=== PATIENT | male | born 1955 | race Asian ===

== ENCOUNTER → 2018-01-22 14:19 | Outpatient (CLI) | payer OTHER, MEDICAID, SELFPAY ==
--- NOTE | 2018-01-22 | DI.RAD.S_ITS ---
PROCEDURE: XR CHEST 2V INDICATIONS: BRONCHITIS TECHNIQUE: 2 views of the chest were acquired. COMPARISON: [facility], YAMILA YI XRAY (1 VIEW ABDOMEN), 05/30/2012, 13:58. FINDINGS: Surgical changes and devices: None. Lungs and pleura: No pleural effusions or pneumothorax. Lungs are abnormal with slight interstitial prominence. Mediastinum: Mediastinal contours are normal. Heart size is mildly enlarged. Bones and chest wall: No suspicious bony abnormalities. Soft tissues appear unremarkable. IMPRESSION: Mild cardiomegaly, slight interstitial prominence. Chronic CHF, mild in severity, can produce this appearance. Pneumonia is not found. Dictated by: Anish Garcia M.D. on 01/22/2018 at 15:14 Approved by: Anish Garcia M.D. on 01/22/2018 at 15:15
== END ==
PROVIDERS: PCP Internal Medicine; Visit Provider Internal Medicine
DX: I51.7 Cardiomegaly (principal); I50.9 Heart failure, unspecified
CPT/HCPCS: 71046

== ENCOUNTER 2019-05-08 13:50 | Day surgery (SDC) | payer OTHER, MEDICAID, SELFPAY ==
--- NOTE | 2019-05-08 | PATH_ITS ---
[facility] Accession Number: [id number] . 01 Material submitted: . PART A: colon - CECAL POLYP X2 PART B: colon - TRANSVERSE COLON POLYPS X5 PART C: rectum - RECTAL POLYPS X4 PART D: colon - DESCENDING COLON POLYPS X5 . 02 Diagnosis: A. Cecum, Polyps x2, Biopsies: Tubular adenoam, one fragment. . B. Transverse Colon, Polyps x5, Biopsies: Multiple fragments of tubulovillous adenoma and tubular adenoma. No evidence of malignancy or high-grade dysplasia. . C. Rectum, Polyps x4, Biopsies: Tubular adenoma in four of five fragments. Hyperplastic polyp in one fragment. . D. Descending Colon, Polyps x5, Biopsies: Tubular adenoma in five of six fragments. [facility] 05/10/2019 1126 Local . 02 Electronically signed: . Niharika Vidal MD, Pathologist NPI- [id number] . 01 Gross description: . Part A: CECAL POLYP X2: Received in formalin is 1 fragment(s) of guajardo, soft tissue measuring 0.5 x 0.4 x 0.4 cm submitted entirely in 1 cassette(s) Part B: TRANSVERSE COLON POLYPS X5: Received in formalin are multiple fragment(s) of guajardo, soft tissue measuring 0.1 x 0.1 x 0.1 cm to 0.7 x 0.6 x 0.6 cm submitted entirely in 2 cassette(s) Part C: RECTAL POLYPS X4: Received in formalin are multiple fragment(s) of guajardo, soft tissue measuring 0.2 x 0.2 x 0.2 cm to 0.6 x 0.6 x 0.5 cm submitted entirely in 1 cassette(s) Part D: DESCENDING COLON POLYPS X5: Received in formalin are multiple fragment(s) of guajardo, soft tissue measuring 0.5 x 0.5 x 0.4 cm to 0.6 x 0.5 x 0.5 cm submitted entirely in 2 cassette(s) /[facility] 05/09/2019 1828 Local . 02 Pathologist provided ICD-10: D12.0, D12.3, D12.4, D12.8 . 02 CPT . 315895, 428784, 358539, 653378 Performed at: 01 [facility] [address] [address], [place], [place] [id number] MD Anthony Rios MD Phone: [phone] Performed at: 02 [facility] [address] [place], [place] [id number] MD Niharika Vidal MD Phone: [phone]
[2019-05-08 14:14] VITALS: BP 133/71; PULSE 86; RESP 20; TEMP 36.1; O2SAT 97
[2019-05-08 14:16] VITALS: BMI 46.5
[2019-05-08] MEDS: SODIUM CHLORIDE 0.9% 1,000 ML 42 ML IV (14:38)
--- NOTE | 2019-05-08 15:16 | PM.HP.1 ---
History of Present Illness History of Present Illness Date Patient Seen: 05/08/19 Time Patient Seen: 15:16 Chief complaint: Colonoscopy [id number] Narrative: Family history of colon cancer in a first-degree relative (father) with last colonoscopy over 10 years ago. Need for colorectal cancer screening Patient History Family & Social History Social History: household members family Meds Home Medications and Allergies Home Medications Medication Instructions Recorded Confirmed Type Lantus U-100 Insulin 80 units SUBDERMAL DAILY 05/08/19 05/08/19 History dorzolamide-timolol 1 drp OPHTHALMIC (EYE) BID 05/08/19 05/08/19 History glipizide 10 mg PO BID 05/08/19 05/08/19 History insulin lispro [Humalog U-100 100 unit SUBCUT TID 05/08/19 05/08/19 History Insulin] latanoprost 1 % OPHTHALMIC (EYE) DAILY 05/08/19 05/08/19 History liraglutide [Victoza 2-Sebastian] 1.2 mg SUBCUT DAILY 05/08/19 05/08/19 History losartan 100 mg PO DAILY 05/08/19 05/08/19 History metoprolol tartrate 50 mg PO DAILY 05/08/19 05/08/19 History simvastatin 40 mg PO BEDTIME 05/08/19 05/08/19 History Allergies Allergy/AdvReac Type Severity Reaction Status Date / Time No Known Drug Allergies Allergy Verified 05/08/19 14:26 Exam Vital Signs (past 8 hours): - 05/08/19 14:14 Temperature 97.0 F L Pulse Rate 86 Respiratory Rate 20 Blood Pressure 133/71 Pulse Oximetry 97 Oxygen Delivery Method Room Air Narrative Exam Narrative: Oropharynx free of lesion but with difficult airway and very thick neck. Chest clear to auscultation percussion Cardiac exam reveals no S3 or murmur Assessment & Plan Assessment & Plan narrative: Family history of colon cancer need for follow-up colonoscopy. Risks, benefits, alternatives have been explained. Plan to do the case with anesthesia due the patient's sleep apnea very thick neck and difficult airway.
--- NOTE | 2019-05-08 15:18 | PM.OP.ENDO ---
Operative Date/Time/Diagnoses Date of procedure: 05/08/19 Time of procedure: 15:19 Pre-op diagnosis: See indication and findings Procedure & Clinicians Study performed: Colonoscopy Same procedure as scheduled: Yes Indications: Family history of colon cancer in father Surgeon: Luz Velazquez Procedure Notes Procedure in detail: After informed consent was obtained the patient was placed in left lateral decubitus position. The video colonoscope was introduced the rectum and slowly advanced cecum. On slow withdrawal mucosa was carefully examined. Preparation was good. The scope was removed. The patient tolerated procedure well. Procedure was very difficult due to multiple polyps and the patient's inability to hold gas within the colon. Glucagon 1 mg was given during procedure Blood loss none Complications none Sedation: MAC Total procedure time over 1 hour Findings 1. Cecum: 1 8 mm cecal polyp was removed with hot snare another 4 mm was removed Jumbo biopsy forceps 2. Transverse: 5 large polyps all 1-2 cm most pedunculated were removed with hot snare. One of the specimens may have been lost in the colon. 3. Descendin large polyps all of over 1 cm it is most pedunculated were removed with hot snare. 4. Four rectal polyps removed 2 with hot snare 2 with cold snare 5. Multiple much smaller polyps less than 5 mm were noted. These were not removed at this time. With 16 large polyps Marko will need close follow-up. I believe he should have follow-up colonoscopy within 3-6 months to completely clear out all the polyps and to inspect some of the polypectomy sites which may have had some residual tissue at the base.
[2019-05-08 17:05] VITALS: BP 101/58; PULSE 79; RESP 15; TEMP 37.1; O2SAT 9
[2019-05-08 17:11] VITALS: BP 108/61; PULSE 81; RESP 20; O2SAT 95
[2019-05-08 17:14] VITALS: BP 114/74; PULSE 79; RESP 18; TEMP 36.9; O2SAT 95
== END 2019-05-08 17:52 ==
PROVIDERS: PCP Internal Medicine; Visit Provider Internal Medicine Gastroenterology
PROC: 0DJD8ZZ Inspection of Lower Intestinal Tract, Via Natural or Artificial Opening Endoscopic (ICD-10-PCS; CPT 45378; principal; 2019-05-08 15:00)
DX: Z12.11 Encounter for screening for malignant neoplasm of colon (principal); Z80.0 Family history of malignant neoplasm of digestive organs; Z79.4 Long term (current) use of insulin; I10 Essential (primary) hypertension; G47.33 Obstructive sleep apnea (adult) (pediatric); E78.5 Hyperlipidemia, unspecified; D12.0 Benign neoplasm of cecum; D12.3 Benign neoplasm of transverse colon; D12.4 Benign neoplasm of descending colon; E11.9 Type 2 diabetes mellitus without complications; E78.00 Pure hypercholesterolemia, unspecified
CPT/HCPCS: 45385; J1100; J2250; J2405; J2704; J3010

== ENCOUNTER 2019-09-18 10:31 | Day surgery (SDC) | payer OTHER, MEDICAID, SELFPAY ==
[2019-09-18] VITALS (7 sets, daily range): BP systolic 90–135; BP diastolic 49–68; PULSE 75–88; RESP 9–22; TEMP 36.2–36.7; O2SAT 95–98; BMI 47.2
--- NOTE | 2019-09-18 | PATH_ITS ---
[facility] Accession Number: [id number] . 01 Material submitted: . PART A: cecum - CECUM NODULARITY PART B: colon - TRANSVERSE COLON POLYP X4 PART C: rectosigmoid junction - RECTOSIGMOID COLON POLYPS X3 . 02 Diagnosis: A. Cecum Nodularity, Biopsy: Colonic mucosa with no diagnostic abnormality. Negative for active, chronic, and microscopic colitis. Negative for dysplasia and malignancy. . B. Transverse Colon, Polyps: Fragments of sessile serrated adenoma and fragment of inflammatory polyp (four polyps removed). . C. Rectosigmoid Junction, Polyps: Tubular adenoma x1. Hyperplastic polyp x1. Colonic mucosa with prominent benign lymphoid aggregate x1. [facility] 09/20/2019 0940 Local . 02 Electronically signed: . Sean Roger MD, PhD, Pathologist NPI- [id number] . 01 Gross description: . Part A: CECUM NODULARITY: Received in formalin are 2 fragment(s) of guajardo, soft tissue measuring 0.1 x 0.1 x 0.1 cm to 0.3 x 0.3 x 0.2 cm submitted entirely in 1 cassette(s) Part B: TRANSVERSE COLON POLYP X4: Received in formalin are 4 fragment(s) of guajardo, soft tissue measuring 0.2 x 0.2 x 0.1 cm to 0.6 x 0.4 x 0.4 cm submitted entirely in 1 cassette(s) Part C: RECTOSIGMOID COLON POLYPS X3: Received in formalin are 3 fragment(s) of guajardo, soft tissue measuring 0.2 x 0.2 x 0.2 cm to 0.7 x 0.6 x 0.6 cm submitted entirely in 1 cassette(s) /[facility] 09/18/2019 2154 Local . 02 Pathologist provided ICD-10: D12.3, D12.7, K51.40 . 02 CPT . 136620, 804353, 376025 Performed at: 01 [facility] [address] [id number] MD Anthony Rios MD Phone: [phone] Performed at: 02 [facility] [address] [place], [place] [id number] MD Niharika Vidal MD Phone: [phone]
--- NOTE | 2019-09-18 10:18 | SUR.PREOP ---
Called patient at given number on file due to delay in arrival to Pre-op. No answer.
--- NOTE | 2019-09-18 11:16 | PM.OP.ENDO ---
Operative Date/Time/Diagnoses Date of procedure: 09/18/19 Pre-op diagnosis: See indication and findings Procedure & Clinicians Study performed: Colonoscopy Same procedure as scheduled: Yes Indications: Multiple polyps removed in with some left behind. Also need to check large polypectomy sites Surgeon: Luz Velazquez Procedure Notes Procedure in detail: After informed consent was obtained the patient was placed in left lateral decubitus position. The video colonoscope was introduced through rectum slowly advanced. Preparation was good. On slow withdrawal mucosa was carefully examined. The scope was removed. The patient tolerated procedure well. Blood loss none Complications none Sedation Total sedation time 24 minutes Versed 6 mg fentanyl 100 mg IV titration Findings 1. Some nodularity in the cecum surrounding and near the appendiceal orifice biopsies taken to rule out carpet polyp/adenoma 2. In the transverse colon 4 polyps removed. The 2 largest were up to 10 x 4 mm and removed with cold snare. Two smaller ones were removed with Jumbo biopsy forceps. 3. 14 mm semi sessile polyp in the sigmoid colon hot snared and removed completely 4. Two diminutive polyp seen in the rectum both Jumbo biopsy removed completely I believe Marko's colon is not completely clear. He should have follow-up colonoscopy in 1 year. We will be in touch about the biopsies particularly the ones in the cecum and hopefully this is not adenomatous tissue.
--- NOTE | 2019-09-18 11:17 | PM.HP.1 ---
History of Present Illness History of Present Illness Date Patient Seen: 09/18/19 Chief complaint: [id number] Narrative: Need to recheck multiple polypectomy sites and to remove the smaller polyps. Patient History Family & Social History Social History: household members family Tobacco & Substance use: Smoking Status Never smoker alcohol intake frequency holiday/special occasion Substance Use Type does not use Meds Home Medications and Allergies Home Medications Medication Instructions Recorded Confirmed Type Lantus U-100 Insulin 80 units SUBDERMAL DAILY 05/08/19 09/18/19 History Victoza 2-Sebastian 1.2 mg SUBCUT DAILY 05/08/19 09/18/19 History dorzolamide-timolol 1 drp OPHTHALMIC (EYE) BID 05/08/19 09/18/19 History glipizide 10 mg PO BID 05/08/19 09/18/19 History insulin lispro [Humalog U-100 100 unit SUBCUT TID 05/08/19 09/18/19 History Insulin] latanoprost 1 % OPHTHALMIC (EYE) DAILY 05/08/19 09/18/19 History losartan 100 mg PO DAILY 05/08/19 09/18/19 History metoprolol tartrate 50 mg PO DAILY 05/08/19 09/18/19 History simvastatin 40 mg PO BEDTIME 05/08/19 09/18/19 History Allergies Allergy/AdvReac Type Severity Reaction Status Date / Time No Known Drug Allergies Allergy Verified 09/18/19 10:50 Exam Vital Signs (past 8 hours): - 09/18/19 11:04 Temperature 97.8 F Pulse Rate 81 Respiratory Rate 20 Blood Pressure 135/68 Pulse Oximetry 98 Oxygen Delivery Method Room Air Narrative Exam Narrative: Oropharynx free of lesions Chest clear to auscultation percussion c Cardiac exam reveals no S3 or murmur Assessment & Plan Assessment & Plan narrative: Need to review multiple polypectomy sites and to take of smaller polyps. Risks, benefits, alternatives have been explained. Further recommendations will follow the results of the study.
--- NOTE | 2019-09-18 11:19 | PM.HP.1 ---
History of Present Illness History of Present Illness Chief complaint: [id number] Narrative: Need to recheck multiple polypectomy sites and to remove the smaller polyps. Patient History Family & Social History Social History: household members family Tobacco & Substance use: Smoking Status Never smoker alcohol intake frequency holiday/special occasion Substance Use Type does not use Meds Home Medications and Allergies Home Medications Medication Instructions Recorded Confirmed Type Lantus U-100 Insulin 80 units SUBDERMAL DAILY 05/08/19 09/18/19 History Victoza 2-Sebastian 1.2 mg SUBCUT DAILY 05/08/19 09/18/19 History dorzolamide-timolol 1 drp OPHTHALMIC (EYE) BID 05/08/19 09/18/19 History glipizide 10 mg PO BID 05/08/19 09/18/19 History insulin lispro [Humalog U-100 100 unit SUBCUT TID 05/08/19 09/18/19 History Insulin] latanoprost 1 % OPHTHALMIC (EYE) DAILY 05/08/19 09/18/19 History losartan 100 mg PO DAILY 05/08/19 09/18/19 History metoprolol tartrate 50 mg PO DAILY 05/08/19 09/18/19 History simvastatin 40 mg PO BEDTIME 05/08/19 09/18/19 History Allergies Allergy/AdvReac Type Severity Reaction Status Date / Time No Known Drug Allergies Allergy Verified 09/18/19 10:50 Exam Vital Signs (past 8 hours): - 09/18/19 11:04 Temperature 97.8 F Pulse Rate 81 Respiratory Rate 20 Blood Pressure 135/68 Pulse Oximetry 98 Oxygen Delivery Method Room Air Narrative Exam Narrative: Oropharynx free of lesion Neck quite large Chest clear to auscultation percussion Cardiac exam reveals no S3 or murmur Assessment & Plan Assessment & Plan narrative: History of multiple and large colon polyps with what is felt to be some incomplete removal need to recheck a polyp sites and remove anything else that is present. Risks, benefits, alternatives have been explained.
[2019-09-18] MEDS: SODIUM CHLORIDE 0.9% 1,000 ML 100 ML IV (11:22)
[2019-09-18] MEDS: fentaNYL 250 MCG/5 ML INJ IV (12:14)
[2019-09-18] MEDS: MIDAZOLAM 5 MG/5 ML VIAL IV (12:15)
== END 2019-09-18 13:08 | disposition home or self-care (01) ==
PROVIDERS: PCP Internal Medicine; Referring Provider Internal Medicine Gastroenterology; Visit Provider Internal Medicine Gastroenterology
PROC: 0DJD8ZZ Inspection of Lower Intestinal Tract, Via Natural or Artificial Opening Endoscopic (ICD-10-PCS; CPT 45378; principal; 2019-09-18 11:30)
DX: D12.3 Benign neoplasm of transverse colon (principal); D12.7 Benign neoplasm of rectosigmoid junction; K51.40 Inflammatory polyps of colon without complications
CPT/HCPCS: 45385; 45380; J2250; J3010

== ENCOUNTER → 2020-06-09 14:42 | Outpatient (CLI) | payer MEDICARE, MEDICAID, SELFPAY | PROVIDERS: PCP Internal Medicine; Referring Provider Internal Medicine Endocrinology, Diabetes & Metabolism; Visit Provider Internal Medicine Endocrinology, Diabetes & Metabolism | DX: Z79.4 Long term (current) use of insulin (principal) | CPT/HCPCS: 36415; 83036 ==

== ENCOUNTER → 2020-12-01 19:42 | Outpatient (ROUT) | payer MEDICARE, MEDICAID, SELFPAY ==
[2020-12-01 20:19] LABS: Aspartate Aminotransferase 32 IU/L (17-59); BUN Creatinine Ratio 26.8 (6-22); Blood Urea Nitrogen 19 mg/dL (9-20); Calcium 9.2 mg/dL (8.4-10.2); Carbon Dioxide 23 mmol/L (22-32); Chloride 106 mmol/L (98-107); Cholesterol 135 mg/dL (140-199); Estimated Glomerular Filt Rate > 60.0 mL/min (>60); Glucose 193 mg/dL (80-110); HDL Cholesterol 48 mg/dL (40-60); HEMOLYSIS < 15 (0-50); LDL Cholesterol Calculated 60 mg/dL (<100); Potassium 3.7 mmol/L (3.4-5.1); Sodium 141 mmol/L (137-145); Triglycerides 135 mg/dL (35-150)
[2020-12-01 20:50] LABS: Prostate Specific Antigen 3.51 ng/mL (0.10-4.00)
== END ==
PROVIDERS: PCP Internal Medicine; Visit Provider Internal Medicine
DX: I10 Essential (primary) hypertension (principal); E78.2 Mixed hyperlipidemia; N40.0 Benign prostatic hyperplasia without lower urinary tract symptoms
CPT/HCPCS: 80048; 80061; 84153; 84450

== ENCOUNTER → 2020-12-10 15:39 | Outpatient (CLI) | payer OTHER, SELFPAY ==
[2020-12-11 10:37] LABS: PSA, Total 3.4 ng/mL (0.0-4.0)
== END ==
PROVIDERS: PCP Internal Medicine; Referring Provider Internal Medicine; Visit Provider Internal Medicine
DX: N40.0 Benign prostatic hyperplasia without lower urinary tract symptoms (principal)
CPT/HCPCS: 36415; 84153; 84154

== ENCOUNTER → 2021-02-08 11:28 | Outpatient (CLI) | payer OTHER, SELFPAY ==
[2021-02-08 13:52] LABS: COVID19 -Nasal RAPID Negative (Negative)
== END ==
PROVIDERS: PCP Internal Medicine; Visit Provider Physician Assistant
DX: Z01.812 Encounter for preprocedural laboratory examination (principal); Z20.822 Contact with and (suspected) exposure to COVID-19
CPT/HCPCS: 87635

== ENCOUNTER 2021-02-10 11:14 | Day surgery (SDC) | payer OTHER, SELFPAY ==
[2021-02-10] VITALS (8 sets, daily range): BP systolic 105–124; BP diastolic 62–76; PULSE 75–86; RESP 14–20; TEMP 36.6–36.9; O2SAT 90–98; BMI 48.7
--- NOTE | 2021-02-10 | PATH_ITS ---
[facility] Accession Number: [id number] . 01 Material submitted: . sigmoid colon - SIGMOID POLYP . 02 Diagnosis: Sigmoid Colon, Polyp, Biopsy: Hyperplastic polyp. [facility] 02/12/2021 1016 Local . 02 Electronically signed: . Niharika Vidal MD, Pathologist NPI- [id number] . 01 Gross description: . SIGMOID POLYP: Received in formalin are 2 fragment(s) of guajardo, soft tissue measuring 0.4 x 0.3 x 0.2 cm to 0.4 x 0.3 x 0.2 cm submitted entirely in 1 cassette(s) /[facility] 02/11/2021 0639 Local . 02 Pathologist provided ICD-10: K63.5 . 02 CPT . 948650 Performed at: 01 [facility] [address] [id number] MD Anthony Rios MD Phone: [phone] Performed at: 02 [facility] [address] [place], [place] [id number] MD Niharika Vidal MD Phone: [phone]
[2021-02-10] MEDS: SODIUM CHLORIDE 0.9% 1,000 ML 125 ML IV (11:42)
[2021-02-10] MEDS: fentaNYL 250 MCG/5 ML INJ IV (13:26)
[2021-02-10] MEDS: MIDAZOLAM 5 MG/5 ML VIAL IV (13:26)
--- NOTE | 2021-02-10 13:40 | PM.OP.ENDO ---
Operative Date/Time/Diagnoses Date of procedure: 02/10/21 Pre-op diagnosis: See indication and findings Procedure & Clinicians Study performed: Colonoscopy Indications: History of colon polyps Surgeon: Luz Velazquez Procedure Notes Procedure in detail: After informed consent was obtained the patient was placed in left lateral decubitus position. The video colonoscope was introduced the rectum slowly advanced cecum. On slow withdrawal mucosa was carefully examined. Preparation was excellent. The scope was removed. The patient tolerated procedure well. Blood loss none Complications none Sedation Total sedation time 17 minutes Versed 7 mg fentanyl 100 micro g IV titration Findings 1. 4 mm polyp in the sigmoid colon Jumbo biopsy removed completely 2. Scattered sigmoid diverticulosis 3. Otherwise negative colonoscopy to cecum Will be in touch regarding his pathology results but given the lack of other polyps he will need follow-up colonoscopy for another 5 years.
--- NOTE | 2021-02-10 14:24 | SUR.PHASEII ---
Pt up and ambulating gait steady, getting dressed now, sister on her way to p/u. Pt given all dc instructions and verbalizes understanding, VSS
== END 2021-02-10 14:32 | disposition home or self-care (01) ==
PROVIDERS: PCP Internal Medicine; Referring Provider Internal Medicine Gastroenterology; Visit Provider Internal Medicine Gastroenterology
PROC: 0DJD8ZZ Inspection of Lower Intestinal Tract, Via Natural or Artificial Opening Endoscopic (ICD-10-PCS; CPT 45378; principal; 2021-02-10 12:30)
DX: Z12.11 Encounter for screening for malignant neoplasm of colon (principal); Z86.010 Personal history of colon polyps; E66.01 Morbid (severe) obesity due to excess calories; E11.9 Type 2 diabetes mellitus without complications; I10 Essential (primary) hypertension; G47.33 Obstructive sleep apnea (adult) (pediatric); Z79.4 Long term (current) use of insulin; K57.30 Diverticulosis of large intestine without perforation or abscess without bleeding; K63.5 Polyp of colon
CPT/HCPCS: 45380; J2250; J3010

== ENCOUNTER → 2021-12-03 10:45 | Outpatient (CLI) | payer OTHER, SELFPAY | PROVIDERS: PCP Internal Medicine; Referring Provider Radiology Radiation Oncology; Visit Provider Radiology Radiation Oncology | DX: C61 Malignant neoplasm of prostate (principal) | CPT/HCPCS: 36415; 84153 ==

== ENCOUNTER → 2022-03-01 11:59 | Outpatient (CLI) | payer MEDICARE, MEDICAID, SELFPAY | PROVIDERS: PCP Internal Medicine; Referring Provider Radiology Radiation Oncology; Visit Provider Radiology Radiation Oncology | DX: C61 Malignant neoplasm of prostate (principal) | CPT/HCPCS: 36415; 84153 ==

== ENCOUNTER → 2022-05-03 10:54 | Outpatient (CLI) | payer MEDICARE, MEDICAID, SELFPAY ==
[2022-05-03 12:50] LABS: Alanine Aminotransferase 42 IU/L (<50); Albumin Globulin Ratio 1.5 (1.0-2.8); Alkaline Phosphatase 110 U/L (38-126); Aspartate Aminotransferase 36 IU/L (17-59); BUN Creatinine Ratio 20.6 (6-22); Bilirubin Total 1.3 mg/dL (0.2-1.3); Blood Urea Nitrogen 14 mg/dL (9-20); Calcium 8.8 mg/dL (8.4-10.2); Carbon Dioxide 25 mmol/L (22-32); Chloride 105 mmol/L (98-107); Cholesterol 134 mg/dL (140-199); Estimated Glomerular Filt Rate > 60 mL/min (>60); Globulin 2.7 g/dL (1.7-4.1); Glucose 173 mg/dL (80-110); HDL Cholesterol 55 mg/dL (40-60); HEMOLYSIS < 15 (0-50); LDL Cholesterol Calculated 51 mg/dL (<100); Phosphorous 3.5 mg/dL (2.3-3.7); Sodium 140 mmol/L (137-145); Total Protein 6.7 g/dL (6.3-8.2); Triglycerides 139 mg/dL (35-150)
[2022-05-03 16:15] LABS: Creatinine Urine Random 208.8 mg/dL
[2022-05-03 16:18] LABS: Microalbumi Creatinin Ratio Ur 71.3 ug/mg CR (<30); Microalbumin Urine Random 14.9 mg/dL (0-1.6)
== END ==
PROVIDERS: PCP Internal Medicine; Referring Provider Student in an Organized Health Care Education/Training Program; Visit Provider Student in an Organized Health Care Education/Training Program
DX: E11.69 Type 2 diabetes mellitus with other specified complication (principal)
CPT/HCPCS: 36415; 80053; 80061; 80069; 82043; 82570; 83036

== ENCOUNTER → 2022-08-30 16:29 | Outpatient (CLI) | payer MEDICARE, MEDICAID, SELFPAY ==
[2022-08-30 18:17] LABS: Prostate Specific Antigen 0.912 ng/mL (0.10-4.00)
== END ==
PROVIDERS: PCP Internal Medicine; Referring Provider Radiology Radiation Oncology; Visit Provider Radiology Radiation Oncology
DX: C61 Malignant neoplasm of prostate (principal)
CPT/HCPCS: 36415; 84153

== ENCOUNTER → 2022-09-26 11:01 | Outpatient (CLI) | payer MEDICARE, MEDICAID, SELFPAY ==
[2022-09-26 11:57] LABS: Appearance Urine UA CLEAR; Bilirubin Urine UA NEGATIVE (NEGATIVE); Color Urine UA YELLOW; Glucose Urine UA NEGATIVE (Negative); Ketones Urine UA NEGATIVE (NEGATIVE); Leukocyte Esterase Urine UA NEGATIVE (NEGATIVE); Nitrite Urine UA NEGATIVE (Negative); Occult Blood Urine UA 2+ (Negative); Protein Urine UA TRACE (Negative); Specific Gravity Urine UA 1.025 (1.000-1.035); Urobilinogen Urine UA 0.2 E.U./dL (0.2)
[2022-09-26 12:06] LABS: Bacteria Urine None Seen; Culture Indicated Urine Cult Not Indicated; RBC Urine 5-10/HPF (0-5/HPF); WBC Urine None Seen (0-5/HPF)
== END ==
PROVIDERS: PCP Internal Medicine; Referring Provider Radiology Radiation Oncology; Visit Provider Radiology Radiation Oncology
DX: C61 Malignant neoplasm of prostate (principal); N39.41 Urge incontinence
CPT/HCPCS: 81001

== ENCOUNTER → 2022-10-27 10:40 | Outpatient (CLI) | payer MEDICARE, MEDICAID, SELFPAY ==
[2022-10-27 12:30] LABS: Alanine Aminotransferase 27 IU/L (<50); Albumin 3.9 g/dL (3.5-5.0); Albumin Globulin Ratio 1.6 (1.0-2.8); Alkaline Phosphatase 95 U/L (38-126); Aspartate Aminotransferase 24 IU/L (17-59); BUN Creatinine Ratio 27.3 (6-22); Bilirubin Total 1.5 mg/dL (0.2-1.3); Blood Urea Nitrogen 18 mg/dL (9-20); Calcium 8.7 mg/dL (8.4-10.2); Carbon Dioxide 26 mmol/L (22-32); Chloride 105 mmol/L (98-107); Cholesterol 120 mg/dL (140-199); Estimated Glomerular Filt Rate > 60 mL/min (>60); Globulin 2.4 g/dL (1.7-4.1); Glucose 127 mg/dL (80-110); HDL Cholesterol 52 mg/dL (40-60); HEMOLYSIS < 15 (0-50); LDL Cholesterol Calculated 46 mg/dL (<100); Sodium 138 mmol/L (137-145); Total Protein 6.3 g/dL (6.3-8.2); Triglycerides 109 mg/dL (35-150)
[2022-10-27 12:53] LABS: Creatinine Urine Random 163.1 mg/dL
[2022-10-27 13:01] LABS: Microalbumi Creatinin Ratio Ur 33.1 ug/mg CR (<30); Microalbumin Urine Random 5.4 mg/dL (0-1.6)
[2022-10-27 13:14] LABS: Potassium 3.8 mmol/L (3.4-5.1)
[2022-10-28 02:36] LABS: Labcorp Hemoglobin (Hb) A1c 6.3 % (4.8-5.6)
== END ==
PROVIDERS: PCP Internal Medicine; Referring Provider Student in an Organized Health Care Education/Training Program; Visit Provider Student in an Organized Health Care Education/Training Program
DX: E11.69 Type 2 diabetes mellitus with other specified complication (principal)
CPT/HCPCS: 36415; 80053; 80061; 82043; 82570; 83036

== ENCOUNTER → 2023-03-01 15:29 | Outpatient (CLI) | payer MEDICARE, SELFPAY ==
[2023-03-01 17:16] LABS: Prostate Specific Antigen 0.719 ng/mL (0.10-4.00)
== END ==
PROVIDERS: PCP Internal Medicine; Referring Provider Radiology Radiation Oncology; Visit Provider Radiology Radiation Oncology
DX: C61 Malignant neoplasm of prostate (principal)
CPT/HCPCS: 36415; 84153

== ENCOUNTER → 2023-04-29 11:26 | Outpatient (CLI) | payer MEDICARE, SELFPAY ==
[2023-04-29 12:57] LABS: Carbon Dioxide 27 mmol/L (22-32); HEMOLYSIS < 15 (0-50)
[2023-04-29 14:18] LABS: Alanine Aminotransferase 47 IU/L (<50); Albumin Globulin Ratio 1.7 (1.0-2.8); Alkaline Phosphatase 95 U/L (38-126); Aspartate Aminotransferase 37 IU/L (17-59); BUN Creatinine Ratio 26.8 (6-22); Bilirubin Total 1.4 mg/dL (0.2-1.3); Blood Urea Nitrogen 19 mg/dL (9-20); Calcium 9.1 mg/dL (8.4-10.2); Chloride 104 mmol/L (98-107); Estimated Glomerular Filt Rate > 60 mL/min (>60); Globulin 2.4 g/dL (1.7-4.1); Glucose 120 mg/dL (80-110); Potassium 4.3 mmol/L (3.4-5.1); Sodium 139 mmol/L (137-145); Total Protein 6.4 g/dL (6.3-8.2)
[2023-04-29 15:41] LABS: Hemoglobin A1C% w Est Avg Glu 7.2 % (4.0-6.0)
[2023-04-29 17:31] LABS: Creatinine Urine Random 79.9 mg/dL
[2023-04-29 17:36] LABS: Microalbumi Creatinin Ratio Ur 110.1 ug/mg CR (<30); Microalbumin Urine Random 8.8 mg/dL (0-1.6)
== END ==
PROVIDERS: PCP Internal Medicine; Referring Provider Student in an Organized Health Care Education/Training Program; Visit Provider Student in an Organized Health Care Education/Training Program
DX: E11.69 Type 2 diabetes mellitus with other specified complication (principal)
CPT/HCPCS: 36415; 80053; 82043; 82570; 83036

== ENCOUNTER → 2023-05-01 10:47 | Outpatient (CLI) | payer MEDICARE, SELFPAY ==
[2023-05-01 12:36] LABS: Cholesterol 116 mg/dL (140-199); HDL Cholesterol 41 mg/dL (40-60); LDL Cholesterol Calculated 54 mg/dL (<100); Triglycerides 107 mg/dL (35-150)
== END ==
PROVIDERS: PCP Internal Medicine; Referring Provider Student in an Organized Health Care Education/Training Program; Visit Provider Student in an Organized Health Care Education/Training Program
DX: E11.69 Type 2 diabetes mellitus with other specified complication (principal)
CPT/HCPCS: 36415; 80061

== ENCOUNTER 2023-06-26 09:18 | Emergency (ER) | payer MEDICARE, SELFPAY ==
[2023-06-26] VITALS (17 sets, daily range): BP systolic 141–203; BP diastolic 62–95; PULSE 70–86; RESP 13–22; TEMP 37.2; O2SAT 95–99; BMI 51.7
--- NOTE | 2023-06-26 09:38 | DI.RAD.S_ITS ---
PROCEDURE: XR CHEST 1V INDICATIONS: Shortness of breath TECHNIQUE: One view of the chest was acquired. COMPARISON: [facility], CR, XR CHEST 2V, 01/22/2018, 13:59. FINDINGS: Surgical changes and devices: None. Lungs and pleura: Lungs are clear. No pleural effusions or pneumothorax. Mediastinum: Mediastinal contours appear normal. Heart size is normal. Bones and chest wall: No suspicious bony lesions. Overlying soft tissues appear unremarkable. IMPRESSION: No acute cardiopulmonary abnormality is seen. Dictated by: Jose Myrick M.D. on 06/26/2023 at 9:48 Approved by: Jose Myrick M.D. on 06/26/2023 at 9:49
[2023-06-26 09:56] LABS: Add Manual Diff / Slide Review NO; Basophils Absolute Auto 0 /uL (0-100); Basophils Percent Auto 0.6 % (0-2); Eosinophils Absolute Auto 100 /uL (0-450); Eosinophils Percent Auto 2.6 % (2-4); Hematocrit 38.4 % (41-53); Hemoglobin 12.7 g/dL (13.5-17.5); Lymphocytes Absolute Auto 400 /uL (1100-4500); Mean Corpuscular HGB Conc 33.2 % (30-36); Mean Corpuscular Hemoglobin 29.1 PG (26-34); Mean Corpuscular Volume 87.7 fL (80-100); Monocytes Absolute Auto 200 /uL (0-900); Monocytes Percent Auto 4.6 % (3-14); Neutrophils Absolute Auto 2700 /uL (1500-7000); Neutrophils Percent Auto 81.2 % (50-75); Platelet Count 54 X10^3/uL (150-400); Red Blood Cell Count 4.38 X10^6/uL (4.5-5.9); Red Cell Distribution Width 16.3 % (11.6-14.8); White Blood Cell Count 3.3 X10^3/uL (4.5-11.0)
[2023-06-26 10:13] LABS: INR 1.1 (0.9-1.3); Prothrombin Time 13.1 SECONDS (9.4-12.5)
[2023-06-26 10:15] LABS: Lactate (Lactic Acid) 1.6 mmol/L (0.7-2.1)
[2023-06-26 10:16] LABS: Alanine Aminotransferase 39 IU/L (<50); Albumin 4.2 g/dL (3.5-5.0); Albumin Globulin Ratio 1.5 (1.0-2.8); Alkaline Phosphatase 118 U/L (38-126); Aspartate Aminotransferase 38 IU/L (17-59); BUN Creatinine Ratio 29.7 (6-22); Blood Urea Nitrogen 19 mg/dL (9-20); Calcium 9.2 mg/dL (8.4-10.2); Carbon Dioxide 27 mmol/L (22-32); Chloride 106 mmol/L (98-107); Estimated Glomerular Filt Rate > 60 mL/min (>60); Globulin 2.8 g/dL (1.7-4.1); Glucose 85 mg/dL (80-110); HEMOLYSIS < 15 (0-50); Potassium 3.7 mmol/L (3.4-5.1); Sodium 140 mmol/L (137-145)
[2023-06-26 10:27] LABS: NT-proBNP (BNP-Adult 18+) 153 pg/mL (<125); Troponin I < 0.012 ng/mL (0.01-0.034)
--- NOTE | 2023-06-26 12:13 | ED_ITS ---
HPI - SOB/Dyspnea General Chief Complaint: Shortness of Breath/Dyspnea Stated Complaint: difficulty breathing Time Seen by Provider: 06/26/23 11:21 Source: patient Mode of arrival: Ambulatory Limitations: no limitations History of Present Illness HPI Narrative: 68-year-old male with history of diabetes, hypertension, dyslipidemia and glaucoma and prostate cancer with treatment with radiation a year ago who presents with 3 weeks with cough was quite a bit of phlegm that has been worsening over the past several days. Patient states he is having trouble clearing the phlegm. He says no fevers no nasal congestion it is more chest congestion. He denies any chest pain or pressure. He states not very short of breath unless he is wearing a mask when he ambulated into the ER. He states when he lays on his left side it seems a little bit worse patient states he is had a lot of trouble sleeping secondary to his breathing. He denies any diaphoresis. No nausea or vomiting. States he has been chronic issues with bowel movement urination after having radiation for prostate cancer last year. Patient states no new swelling in extremities. States no surgeries besides hemorrhoidectomy and had colonoscopy x3 for polyps. No known drug allergies. No tobacco, alcohol or illicit. He is several family members have recently been sick and with pneumonia. Related Data Home Medications Medication Instructions Recorded Confirmed Lantus U-100 Insulin 80 units subdermal DAILY 05/08/19 06/23/22 dorzolamide 22.3 mg-timolol 6.8 1 drp ophthalmic (eye) BID 05/08/19 06/23/22 mg/mL eye drops insulin lispro 100 unit/mL 100 unit SUBCUT TID 05/08/19 06/23/22 subcutaneous solution (Humalog U-100 Insulin) latanoprost 0.005 % eye drops 1 % ophthalmic (eye) DAILY 05/08/19 06/23/22 metoprolol tartrate 50 mg tablet 50 mg PO DAILY 05/08/19 06/23/22 simvastatin 40 mg tablet 40 mg PO BEDTIME 05/08/19 06/23/22 blood sugar diagnostic (Accu-Chek #10 ea 11/18/21 06/23/22 Guide test strips) pioglitazone 15 mg tablet 15 mg PO DAILY 11/18/21 06/23/22 semaglutide 1 mg/dose (4 mg/3 mL) 1 mg SUBCUT QWEEK 11/18/21 06/23/22 subcutaneous pen injector (Ozempic) tamsulosin 0.4 mg capsule 0.4 mg PO DAILY 11/18/21 06/23/22 Previous Rx's Medication Instructions Recorded albuterol sulfate 90 mcg/actuation 2 puff inhalation Q4-6H PRN 06/26/23 aerosol inhaler (ProAir HFA) shortness of breath or wheezing #8.5 grams Allergies Allergy/AdvReac Type Severity Reaction Status Date / Time metformin AdvReac Severe Bowel Verified 06/23/22 11:29 urgency Review of Systems Review of Systems ROS Unobtainable: All systems reviewed & are unremarkable except as noted in HPI and below Patient History Medical History Back pain Vision disorder Hearing loss Dry skin Gout Glaucoma History of urinary incontinence Fecal incontinence History of elevated PSA History of colon polyps Severe obesity (BMI >= 40) Malignant neoplasm of prostate (~2021) Mixed hyperlipidemia Essential hypertension Dyslipidemia associated with type 2 diabetes mellitus Surgical History Anesthesia History of radiation therapy History of hemorrhoidectomy History of cataract removal with insertion of prosthetic lens Family History Father Cancer Brother History of heart disease Social History household members: family Smoking Status: Never smoker alcohol intake: current Smoking Status: Never smoker alcohol intake frequency: holidays/special occasions only Substance Use Type: does not use Exam Narrative Exam Narrative: GENERAL: Alert and oriented x three, male with BMI of 51 in mild distress. HEENT: Head normocephalic, atraumatic, EOMI, pupils reactive, face symmetric, moist mucous membranes NECK: Supple, full range of motion CARDIOVASCULAR: Regular rate and rhythm without murmurs, rubs or gallops. No edema bilateral lower extremities. RESPIRATORY: Breath sounds equal bilaterally, mild wheeze bilateral bases, no rales. Patient has rhonchi in his course. Seems to clear with cough. Right greater than left on exam. No tachypnea, no accessory muscle use. ABDOMEN: Soft, nontender. Normoactive bowel sounds all 4 quadrants. No guarding or rebound, rigidity, no mass : No CVA tenderness EXTREMITIES: Normal range of motion. Neurovascularly intact. Normal gait. NEUROLOGICAL: Cranial nerves II through XII grossly intact. Moving all extremities SKIN: Warm, dry, no petechiae, no rashes or lesions. Initial Vital Signs Initial Vital Signs: Vital Signs Pulse Rate 79 06/26/23 09:39 Respiratory Rate 18 06/26/23 09:39 Pulse Oximetry 95 06/26/23 09:39 Course Orders Ordered: Discontinued Medications Albuterol/Ipratropium (Albuterol/Ipratropium 3 Ml Ampul) 3 ml INH NOW ONE Stop: 06/26/23 12:58 Last Admin: 06/26/23 13:10 Dose: 3 ml Documented By: VANESSA Vital Signs Vital signs: Vital Signs - 8 hr 06/26/23 09:39 06/26/23 09:42 06/26/23 09:52 Temperature 98.9 F Pulse Rate 79 86 Respiratory Rate 18 17 Blood Pressure 191/95 H 141/71 H Pulse Oximetry 95 98 Oxygen Delivery Method Room Air 06/26/23 09:52 06/26/23 10:00 06/26/23 10:00 Temperature Pulse Rate 74 75 Respiratory Rate 18 17 Blood Pressure 147/75 H Pulse Oximetry 96 95 Oxygen Delivery Method 06/26/23 10:30 06/26/23 10:30 06/26/23 11:00 Temperature Pulse Rate 74 Respiratory Rate 19 Blood Pressure 164/77 H 162/79 H Pulse Oximetry 96 Oxygen Delivery Method 06/26/23 11:00 06/26/23 11:30 06/26/23 11:30 Temperature Pulse Rate 74 74 Respiratory Rate 20 13 Blood Pressure 168/80 H Pulse Oximetry 96 97 Oxygen Delivery Method 06/26/23 12:00 06/26/23 12:00 06/26/23 12:30 Temperature Pulse Rate 73 86 Respiratory Rate 17 Blood Pressure 155/79 H Pulse Oximetry 98 97 Oxygen Delivery Method 06/26/23 12:31 06/26/23 12:31 06/26/23 12:35 Temperature Pulse Rate 78 Respiratory Rate Blood Pressure 203/93 H 170/62 H Pulse Oximetry 97 Oxygen Delivery Method 06/26/23 12:35 06/26/23 13:00 06/26/23 13:01 Temperature Pulse Rate 77 74 Respiratory Rate 19 19 Blood Pressure 170/78 H Pulse Oximetry 96 97 Oxygen Delivery Method 06/26/23 13:01 06/26/23 13:13 Temperature Pulse Rate 73 70 Respiratory Rate 20 16 Blood Pressure Pulse Oximetry 96 99 Oxygen Delivery Method Room Air MDM - SOB/Dyspnea Lab Data 06/26/23 09:40 06/26/23 09:40 Labs: Lab Results 06/26/23 06/26/23 Range/Units 09:40 12:30 WBC 3.3 L (4.5-11.0) X10^3/uL RBC 4.38 L (4.5-5.9) X10^6/uL Hgb 12.7 L (13.5-17.5) g/dL Hct 38.4 L (41-53) % MCV 87.7 (80-100) fL MCH 29.1 (26-34) PG MCHC 33.2 (30-36) % RDW 16.3 H (11.6-14.8) % Plt Count 54 L (150-400) X10^3/uL Neut % (Auto) 81.2 H (50-75) % Lymph % (Auto) 11.0 L (25-40) % Craven % (Auto) 4.6 (3-14) % Eos % (Auto) 2.6 (2-4) % Baso % (Auto) 0.6 (0-2) % Neut # (Auto) 2700 (2393-1916) /uL Lymph # (Auto) 400 L (4482-6521) /uL Craven # (Auto) 200 (0-900) /uL Eos # (Auto) 100 (0-450) /uL Baso # (Auto) 0 (0-100) /uL PT 13.1 H (9.4-12.5) SECONDS INR 1.1 (0.9-1.3) Sodium 140 (137-145) mmol/L Potassium 3.7 (3.4-5.1) mmol/L Chloride 106 (98-107) mmol/L Carbon Dioxide 27 (22-32) mmol/L BUN 19 (9-20) mg/dL Creatinine 0.64 L (0.66-1.25) mg/dL Estimated GFR > 60 (>60) mL/min BUN/Creatinine Ratio 29.7 H (6-22) Glucose 85 (80-110) mg/dL Lactate 1.6 (0.7-2.1) mmol/L Calcium 9.2 (8.4-10.2) mg/dL Total Bilirubin 1.0 (0.2-1.3) mg/dL AST 38 (17-59) IU/L ALT 39 (<50) IU/L Alkaline Phosphatase 118 (38-126) U/L Troponin I < 0.012 (0.01-0.034) ng/mL NT-Pro-B Natriuret Pep 153 H (<125) pg/mL Total Protein 7.0 (6.3-8.2) g/dL Albumin 4.2 (3.5-5.0) g/dL Globulin 2.8 (1.7-4.1) g/dL Albumin/Globulin Ratio 1.5 (1.0-2.8) SARS-CoV-2 (PCR) Negative (Negative) Influenza A (RT-PCR) Flu a negative (NEGATIVE) Influenza B (RT-PCR) Flu b negative (NEGATIVE) RSV (PCR) Positive A (Negative) Imaging Data Chest x-ray: Radiologist's Impression: [address] [address] XRay Report Signed Patient: Marko Larson MR#: [id number] : 1955 Acct:[id number] Age/Sex: 68 / M Date of Service: 06/26/23 Loc: ED Accession Number: [id number] Procedure: XR chest 1V Ordering Provider: Rianna Alonso D.O. PROCEDURE: XR CHEST 1V INDICATIONS: Shortness of breath TECHNIQUE: One view of the chest was acquired. COMPARISON: [facility], , XR CHEST 2V, 01/22/2018, 13:59. FINDINGS: Surgical changes and devices: None. Lungs and pleura: Lungs are clear. No pleural effusions or pneumothorax. Mediastinum: Mediastinal contours appear normal. Heart size is normal. Bones and chest wall: No suspicious bony lesions. Overlying soft tissues appear unremarkable. IMPRESSION: No acute cardiopulmonary abnormality is seen. Dictated by: Jose Myrick M.D. on 06/26/2023 at 9:48 Approved by: Jose Myrick M.D. on 06/26/2023 at 9:49 ECG Data Attestation: I personally reviewed and interpreted this ECG as follows: Interpretation: Sinus rhythm rate of 78 MA 198 QRS of 100 QTC 467. Occasional PVC, no acute ST elevation depression noted patient does not have any priors for comparison. MDM Narrative Medical decision making narrative: 68-year-old male with chest congestion worsening over the past 3 weeks patient states no fevers or other changes but has felt like it is more infectious. Has had sick contacts. He does have hypertension, diabetes, dyslipidemia and a BMI of 51 so cardiac workup including BNP was included. On exam patient has some mild wheeze but more rhonchi. We will try 1 DuoNeb see if patient responds well. He is reluctant to have any steroids secondary to his diabetes understandably. CBC does show white count of 3.3 hemoglobin of 12.7 platelets of 54 white count hemoglobin were normal in 2016 with platelets of 111. He states he does occasionally get bad nosebleeds everywhere he does not recall being told that his numbers were off. He does follow regularly with primary care. INR is 1.1 CMP shows normal electrolytes renal function glucose LFTs, troponin with a BNP of 153 and a lactate of 1.6. Chest x-ray is negative. EKG shows occasional PVCs but no acute ST changes. COVID/flu/RSV swab is positive for RSV. Patient had DuoNeb with minimal improvement per ID. Rhonchi and wheeze sound improved to myself. RT did give him a pep and incentive spirometer. Discussed with patient he felt improvement with the DuoNeb. Discussed with patient we will give albuterol inhaler. Does not have a lot of wheezing on exam we will hold off on steroids secondary to diabetes and patient is reluctant. Discussed positive for RSV mainly symptomatic treatment can try oral antihistamine to see if that is helpful. Discussed return precautions. All questions answered. Patient does have a home pulse oximeter that he will use and if dropping below 90% we will return for re- evaluation Discharge Plan Departure Patient Disposition: Home Clinical Impression: Respiratory syncytial virus infection Instructions: DI for Respiratory Syncytial Virus -- Adults Activity Restrictions/Additional Instructions: Please follow-up for recheck if your symptoms are not starting to improve over the next week. You did test positive for RSV today this is a viral illness typically last 7-10 days. Treatment is mainly symptomatic. You can take loratadine 1 tablet prior to sleep daily or similar [id number] antihistamine for congestion. Use albuterol 1-2 puffs every 4 hours as needed for tightness, wheezing or shortness of breath. Prescription sent to [facility] in [place] Please return for new or worsening chest pain, increasing shortness of breath, if your oxygen saturation drops below 90%, lightheadedness, passing out, increasing swelling of your extremities or other new or concerning changes. Prescriptions: New albuterol sulfate [ProAir HFA] 90 mcg/actuation HFA aerosol inhaler 2 puff inhalation Q4-6H PRN (Reason: shortness of breath or wheezing) Qty: 8.5 0RF No Action pioglitazone 15 mg tablet 15 mg PO DAILY tamsulosin 0.4 mg capsule 0.4 mg PO DAILY Ozempic 1 mg/dose (4 mg/3 mL) pen injector 1 mg SUBCUT QWEEK Patient Comments: INJECT 1 MG UNDER THE SKIN ONCE A WEEK (DME) Accu-Chek Guide test strips Strip See Rx Instructions .ROUTE .MEDSUPPLY Qty: 10 Patient Comments: USE TO CHECK BLOOD SUGAR FOUR TIMES DAILY DIRECTED Rx Instructions: As directed latanoprost 0.005 % Drops 1 % OPHTHALMIC (EYE) DAILY simvastatin 40 mg Tablet 40 mg PO BEDTIME metoprolol tartrate 50 mg Tablet 50 mg PO DAILY dorzolamide-timolol 22.3-6.8 mg/mL Drops 1 drp OPHTHALMIC (EYE) BID insulin lispro [Humalog U-100 Insulin] 100 unit/mL Solution 100 unit SUBCUT TID Lantus U-100 Insulin 80 units subdermal DAILY Patient Comments: 70 units of Lantus last night 2300 Referrals: Herminio Ward MD [Primary Care Provider] - Stand Alone Forms: Patient Portal/API
[2023-06-26] MEDS: ALBUTEROL/IPRATROPIUM 3 ML AMPUL INH (13:10)
[2023-06-26 13:36] LABS: COVID-19 CEPHEID 4-PLEX PCR Negative (Negative); Influenza A - CEPHEID Flu A NEGATIVE (NEGATIVE); Influenza B - CEPHEID Flu B NEGATIVE (NEGATIVE); Respiratory Syncytial Virus POSITIVE (Negative)
== END 2023-06-26 14:02 | disposition home or self-care (01) ==
PROVIDERS: Emergency Provider Emergency Medicine; PCP Internal Medicine
DX: J98.8 Other specified respiratory disorders (principal); B97.4 Respiratory syncytial virus as the cause of diseases classified elsewhere; I49.3 Ventricular premature depolarization
CPT/HCPCS: 0241U; 36415; 71045; 80053; 83605; 83880; 84484; 85025; 85610; 93005; 93010; 94640; 99284

== ENCOUNTER → 2023-07-12 10:43 | Outpatient (CLI) | payer MEDICARE, SELFPAY ==
[2023-07-12 11:50] LABS: Add Manual Diff / Slide Review NO; Basophils Absolute Auto 0 /uL (0-100); Basophils Percent Auto 0.5 % (0-2); Eosinophils Absolute Auto 200 /uL (0-450); Eosinophils Percent Auto 3.1 % (2-4); Hemoglobin 13.1 g/dL (13.5-17.5); Lymphocytes Absolute Auto 400 /uL (1100-4500); Lymphocytes Percent Auto 8.8 % (25-40); Mean Corpuscular HGB Conc 33.5 % (30-36); Mean Corpuscular Volume 86.6 fL (80-100); Monocytes Absolute Auto 200 /uL (0-900); Neutrophils Absolute Auto 3900 /uL (1500-7000); Neutrophils Percent Auto 82.6 % (50-75); Platelet Count 63 X10^3/uL (150-400); Red Cell Distribution Width 16.4 % (11.6-14.8); White Blood Cell Count 4.8 X10^3/uL (4.5-11.0)
[2023-07-12 13:47] LABS: HEMOLYSIS < 15 (0-50); Iron 70 ug/dL (49-181)
[2023-07-12 14:03] LABS: Percent Iron Saturation 20 % (20-50); Total Iron Binding Capacity 351 ug/dL (261-462); Transferrin 278 mg/dL (206-381)
[2023-07-12 14:26] LABS: BUN Creatinine Ratio 26.9 (6-22); Blood Urea Nitrogen 18 mg/dL (9-20); Calcium 9.3 mg/dL (8.4-10.2); Carbon Dioxide 28 mmol/L (22-32); Chloride 101 mmol/L (98-107); Estimated Glomerular Filt Rate > 60 mL/min (>60); Glucose 168 mg/dL (80-110); HEMOLYSIS < 15 (0-50); Potassium 3.5 mmol/L (3.4-5.1); Sodium 137 mmol/L (137-145)
[2023-07-12 14:56] LABS: Ferritin 57 ng/mL (18-464)
[2023-07-12 14:58] LABS: Hemoglobin A1C% w Est Avg Glu 6.7 % (4.0-6.0)
== END ==
PROVIDERS: PCP Internal Medicine; Referring Provider Physician Assistant; Visit Provider Physician Assistant
DX: I10 Essential (primary) hypertension (principal); D64.9 Anemia, unspecified; E11.69 Type 2 diabetes mellitus with other specified complication; D61.818 Other pancytopenia; E66.9 Obesity, unspecified
CPT/HCPCS: 36415; 80048; 82728; 83036; 83540; 83550; 85025

== ENCOUNTER → 2023-08-18 13:48 | Outpatient (CLI) | payer MEDICARE, SELFPAY ==
--- NOTE | 2023-08-18 13:50 | DI.CT.S_ITS ---
PROCEDURE: CT ABDOMEN PELVIS W CON INDICATIONS: Malignant neoplasm of prostate TECHNIQUE: After the administration of intravenous contrast, axial sections acquired from the lung bases to the pubic symphysis. Coronal and sagittal reformats were performed. For radiation dose reduction, the following was used: automated exposure control, adjustment of mA and/or kV according to patient size. COMPARISON: None. FINDINGS: Image quality: Diagnostic. Lower Chest: No significant findings. ABDOMEN: Liver: The liver demonstrates surface nodularity suggesting cirrhotic transformation. Gallbladder: There are likely small stones within the gallbladder neck. Biliary ducts: No biliary dilation. Pancreas: No ductal dilation. Spleen: The spleen measures 20.2 cm in length. A small splenule is present adjacent to the spleen. Adrenal Glands: No adrenal nodules. Kidneys and Ureters: No hydronephrosis. No solid mass. No complex renal cystic lesion which requires follow up. 2 nonobstructing 3 mm calculi are present within the lower pole of the left kidney. Stomach and Bowel: Normal colonic caliber, without significant wall thickening. The appendix is not visualized; however there is no discrete right lower quadrant fluid or fat stranding to suggest acute appendicitis. Peritoneum: No abnormal intraperitoneal fluid. No free air. Ventral Wall: No significant ventral hernia. Abdominal Nodes: No retroperitoneal or mesenteric adenopathy by size criteria. Vessels: Aorta and inferior vena cava are normal in size. Multiple small gastroesophageal varices are noted. There are scattered atheromatous calcifications throughout the aorta and iliac arteries bilaterally. PELVIS: Pelvic Organs: Unremarkable. Bladder: No bladder wall thickening, accounting for underdistention. Pelvic Nodes: No enlarged lymph nodes. Miscellaneous: No inguinal hernias are seen. Fat stranding and calcification is noted within the anterior subcutaneous fat which may be associated with injection granulomas. Bones: No aggressive osseous abnormality. IMPRESSION: 1. No acute intra-abdominal findings. The appendix is not visualized; however there are no ancillary findings to suggest acute appendicitis. 2. 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 3. Nonobstructive left nephrolithiasis. 4. Probable small stones at the gallbladder neck without gallbladder wall thickening or pericholecystic fluid. Dictated by: Marisela Negrete M.D. on 08/18/2023 at 16:44 Approved by: Marisela Negrete M.D. on 08/18/2023 at 16:49
== END ==
LOC: CT 13:50
PROVIDERS: PCP Internal Medicine; Referring Provider Internal Medicine Hematology & Oncology; Visit Provider Internal Medicine Hematology & Oncology
DX: C61 Malignant neoplasm of prostate (principal); D69.6 Thrombocytopenia, unspecified; N20.0 Calculus of kidney; R16.1 Splenomegaly, not elsewhere classified; I86.4 Gastric varices; I85.00 Esophageal varices without bleeding
CPT/HCPCS: 74177; Q9967

== ENCOUNTER 2023-10-26 20:33 | Emergency (ER) | payer OTHER, SELFPAY ==
[2023-10-26 20:47] VITALS: BP 137/64; PULSE 84; RESP 16; TEMP 37; O2SAT 97; BMI 51.7
--- NOTE | 2023-10-26 21:12 | ED.EXTPRO ---
HPI - Extremity Problem General Chief complaint: Extremity Problem,Nontraumatic Stated complaint: lt knee pain, unable to walk on it Time Seen by Provider: 10/26/23 20:43 Source: patient Mode of arrival: Wheelchair History of Present Illness HPI Narrative: 68-year-old male who is here for evaluation of left knee pain. He states that just under 1 week ago when he was getting out of bed he hurt the back of his left knee. He stated that he thought the symptoms were actually improving somewhat over the past couple days however this evening after taking a shower he thinks maybe he twisted wrong and now he has discomfort in that area once again. He was able to stand on it but is having quite a bit of discomfort. The pain is on the back of his knee. No hip pain or ankle pain. He did not fall. He does have a cane that he has been using at home which has been helping and also a walker which has been helping as well. Related Data Home Medications Medication Instructions Recorded Confirmed dorzolamide 22.3 mg-timolol 6.8 1 drp ophthalmic (eye) BID 05/08/19 08/17/23 mg/mL eye drops latanoprost 0.005 % eye drops 1 % ophthalmic (eye) DAILY 05/08/19 08/17/23 simvastatin 40 mg tablet 40 mg PO BEDTIME 05/08/19 08/17/23 blood sugar diagnostic (Accu-Chek #10 ea 11/18/21 08/17/23 Guide test strips) tamsulosin 0.4 mg capsule 0.4 mg PO DAILY 11/18/21 08/17/23 insulin degludec 200 unit/mL (3 60 unit SUBCUT BID 08/17/23 08/17/23 mL) subcutaneous pen (Tresiba FlexTouch U-200 insulin) insulin lispro 200 unit/mL (3 mL) 60 unit SUBCUT TIDWMEAL 08/17/23 08/17/23 subcutaneous pen (Humalog KwikPen U-200 Insulin) metoprolol succinate 50 mg 50 mg PO DAILY 08/17/23 08/17/23 tablet,extended release 24 hr pen needle, diabetic 31 gauge x #1,200 ea 08/17/23 08/17/2316 (BD Ultra-Fine Mini Pen Needle) pioglitazone 15 mg tablet 15 mg PO DAILY 08/17/23 08/17/23 semaglutide 0.25 mg or 0.5 mg (2 0.5 mg SUBCUT QWEEK 08/17/23 08/17/23 mg/3 mL) subcutaneous pen injector ([employer]) Previous Rx's Medication Instructions Recorded albuterol sulfate 90 mcg/actuation 2 puff inhalation Q4-6H PRN 06/26/23 aerosol inhaler (ProAir HFA) shortness of breath or wheezing #8.5 grams losartan 50 mg-hydrochlorothiazide 1 tab PO DAILY #90 tabs 07/13/23 12.5 mg tablet terbinafine HCl 1 % topical cream 1 applic topical TID #15 grams 09/04/23 (Antifungal (terbinafine)) terbinafine HCl 250 mg tablet 250 mg PO DAILY groin rash #14 tabs 10/23/23 Allergies Allergy/AdvReac Type Severity Reaction Status Date / Time metformin AdvReac Severe Bowel Verified 10/26/23 20:52 urgency Review of Systems Constitutional Constitutional: Reports system reviewed and no additional complaints, except as documented Musculoskeletal Musculoskeletal: Reports system reviewed and no additional complaints, except as documented Integumentary/Breasts Skin/Breast: Reports system reviewed and no additional complaints, except as documented Neurologic Neurologic: Reports system reviewed and no additional complaints, except as documented Hematologic/Lymphatic On Anticoagulants: No Patient History Medical History Type 2 diabetes mellitus with albuminuria Back pain Vision disorder Hearing loss Dry skin Gout Glaucoma History of urinary incontinence Fecal incontinence History of elevated PSA History of colon polyps Severe obesity (BMI >= 40) Malignant neoplasm of prostate (~2021) Mixed hyperlipidemia Essential hypertension Dyslipidemia associated with type 2 diabetes mellitus Surgical History Anesthesia History of radiation therapy History of hemorrhoidectomy History of cataract removal with insertion of prosthetic lens Family History Father Cancer Brother History of heart disease Social History household members: family Smoking Status: Never smoker alcohol intake: current Smoking Status: Never smoker alcohol intake frequency: holidays/special occasions only Substance Use Type: does not use Exam Initial Vital Signs Initial Vital Signs: Vital Signs Temperature 98.6 F 10/26/23 20:47 Pulse Rate 84 10/26/23 20:47 Respiratory Rate 16 10/26/23 20:47 Blood Pressure 137/64 10/26/23 20:47 Pulse Oximetry 97 10/26/23 20:47 Oxygen Delivery Method Room Air 10/26/23 20:47 Const General: cooperative and No ill appearing HENMT Head: normal to inspection and normocephalic Skin General: no rashes or lesions noted Neuro Sensory Exam: no sensory deficits noted Extrem Other: Left knee: No discomfort over the patellar quadriceps tendon. No discomfort over the mediolateral joint line. Has some discomfort over the lateral hamstring tendon however the tendon is intact. Course Vital Signs Vital signs: Vital Signs - 8 hr 10/26/23 20:47 10/26/23 21:21 Temperature 98.6 F Pulse Rate 84 77 Respiratory Rate 16 14 Blood Pressure 137/64 137/68 Pulse Oximetry 97 95 Oxygen Delivery Method Room Air Room Air MDM - Extremity (Nontraumatic) MDM Narrative Medical decision making narrative: No specific trauma today. He has not fallen on his knee. He is specifically tender over the hamstring tendon on the left posteriorly. The tendon is intact. Indication for radiologic studies. Will have the patient use the walker at home as needed we discussed return precautions and follow-up instructions. Patient expressed understanding and agreement with plan. Discharge Plan Departure Patient Disposition: Home Clinical Impression: Hamstring muscle strain Instructions: DI for Hamstring Strain Activity Restrictions/Additional Instructions: You can use the elastic bandage as needed if you think that it is helpful. You can also use the cane with a walker at home to help support you this is helpful as well. Contact your primary care doctor for a follow-up. Return to the emergency department for new symptoms. Prescriptions: No Action terbinafine HCl [Antifungal (terbinafine)] 1 % cream 1 applic topical TID Qty: 15 0RF Rx Instructions: terbinafine 1% TID x 7 days to affected area. terbinafine HCl 250 mg tablet 250 mg PO DAILY Qty: 14 1RF tamsulosin 0.4 mg capsule 0.4 mg PO DAILY (DME) Accu-Chek Guide test strips Strip See Rx Instructions .ROUTE .MEDSUPPLY Qty: 10 Patient Comments: USE TO CHECK BLOOD SUGAR FOUR TIMES DAILY DIRECTED Rx Instructions: As directed (DME) pen needle, diabetic [BD Ultra-Fine Mini Pen Needle] 31 gauge x 3/16 needle See Rx Instructions .ROUTE .MEDSUPPLY Qty: 1200 Rx Instructions: As directed metoprolol succinate 50 mg tablet extended release 24 hr 50 mg PO DAILY pioglitazone 15 mg tablet 15 mg PO DAILY insulin degludec [Tresiba FlexTouch U-200] 200 unit/mL (3 mL) insulin pen 60 unit SUBCUT BID Patient Comments: [NO ORIGINAL SIG] Humalog KwikPen Insulin 200 unit/mL (3 mL) insulin pen 60 unit SUBCUT TIDWMEAL Ozempic 0.25 mg or 0.5 mg (2 mg/3 mL) pen injector 0.5 mg SUBCUT QWEEK Patient Comments: [NO ORIGINAL SIG] losartan-hydrochlorothiazide 50-12.5 mg tablet 1 tab PO DAILY Qty: 90 0RF latanoprost 0.005 % Drops 1 % OPHTHALMIC (EYE) DAILY simvastatin 40 mg Tablet 40 mg PO BEDTIME dorzolamide-timolol 22.3-6.8 mg/mL Drops 1 drp OPHTHALMIC (EYE) BID albuterol sulfate [ProAir HFA] 90 mcg/actuation HFA aerosol inhaler 2 puff inhalation Q4-6H PRN (Reason: shortness of breath or wheezing) Qty: 8.5 0RF Referrals: Herminio Ward MD [Primary Care Provider] - Stand Alone Forms: Patient Portal/API
[2023-10-26 21:21] VITALS: BP 137/68; PULSE 77; RESP 14; O2SAT 95
== END 2023-10-26 21:25 | disposition home or self-care (01) ==
PROVIDERS: Emergency Provider Emergency Medicine; PCP Internal Medicine
DX: S76.312A Strain of muscle, fascia and tendon of the posterior muscle group at thigh level, left thigh, initial encounter (principal); X58.XXXA Exposure to other specified factors, initial encounter
CPT/HCPCS: 99281

== ENCOUNTER → 2023-12-20 11:45 | Outpatient (CLI) | payer MEDICARE, SELFPAY | PROVIDERS: PCP Internal Medicine; Visit Provider Specialist | DX: R39.9 Unspecified symptoms and signs involving the genitourinary system (principal) | CPT/HCPCS: 87086 ==

== ENCOUNTER → 2023-12-22 09:29 | Outpatient (CLI) | payer MEDICARE, SELFPAY ==
[2023-12-22 11:26] LABS: Prostate Specific Antigen 0.405 ng/mL (0.10-4.00)
== END ==
PROVIDERS: PCP Internal Medicine; Referring Provider Specialist; Visit Provider Specialist
DX: C61 Malignant neoplasm of prostate (principal)
CPT/HCPCS: 36415; 84153

== ENCOUNTER → 2024-02-20 09:17 | Outpatient (CLI) | payer MEDICARE, SELFPAY ==
[2024-02-20 10:17] LABS: Hematocrit 38.5 % (41-53); Hemoglobin 12.7 g/dL (13.5-17.5); Mean Corpuscular HGB Conc 33.1 % (30-36); Mean Corpuscular Hemoglobin 27.9 PG (26-34); Mean Corpuscular Volume 84.2 fL (80-100); Platelet Count 74 X10^3/uL (150-400); Red Blood Cell Count 4.57 X10^6/uL (4.5-5.9); Red Cell Distribution Width 17.5 % (11.6-14.8); White Blood Cell Count 5.3 X10^3/uL (4.5-11.0)
[2024-02-20 10:45] LABS: Alanine Aminotransferase 29 IU/L (<50); Albumin 3.8 g/dL (3.5-5.0); Albumin Globulin Ratio 1.5 (1.0-2.8); Alkaline Phosphatase 82 U/L (38-126); Aspartate Aminotransferase 32 IU/L (17-59); BUN Creatinine Ratio 13.3 (6-22); Bilirubin Total 1.7 mg/dL (0.2-1.3); Blood Urea Nitrogen 12 mg/dL (9-20); Calcium 8.9 mg/dL (8.4-10.2); Carbon Dioxide 29 mmol/L (22-32); Chloride 107 mmol/L (98-107); Estimated Glomerular Filt Rate > 60 mL/min (>60); Globulin 2.5 g/dL (1.7-4.1); Glucose 144 mg/dL (80-110); HEMOLYSIS < 15 (0-50); Potassium 4.4 mmol/L (3.4-5.1); Sodium 138 mmol/L (137-145); Total Protein 6.3 g/dL (6.3-8.2)
== END ==
PROVIDERS: PCP Internal Medicine; Referring Provider Internal Medicine; Visit Provider Internal Medicine
DX: M10.9 Gout, unspecified (principal); D61.818 Other pancytopenia
CPT/HCPCS: 36415; 80053; 85027

== ENCOUNTER → 2024-02-29 16:37 | Outpatient (CLI) | payer MEDICARE, SELFPAY | LOC: LAB 16:37 | PROVIDERS: PCP Internal Medicine; Referring Provider Internal Medicine; Visit Provider Internal Medicine | DX: D64.9 Anemia, unspecified (principal); D61.818 Other pancytopenia; M10.9 Gout, unspecified | CPT/HCPCS: 82274 ==

== ENCOUNTER → 2024-09-09 17:10 | Outpatient (CLI) | payer MEDICARE, SELFPAY ==
[2024-09-09 19:58] LABS: Prostate Specific Antigen 0.337 ng/mL (0.10-4.00)
== END ==
PROVIDERS: PCP Internal Medicine; Referring Provider Radiology Radiation Oncology; Visit Provider Radiology Radiation Oncology
DX: C61 Malignant neoplasm of prostate (principal)
CPT/HCPCS: 36415; 84153

== ENCOUNTER → 2025-01-01 11:40 | Outpatient (CLI) | payer MEDICARE, SELFPAY ==
[2025-01-01 13:30] LABS: Albumin 3.7 g/dL (3.5-5.0); BUN Creatinine Ratio 14.5 (6-22); Blood Urea Nitrogen 12 mg/dL (9-20); Calcium 8.5 mg/dL (8.4-10.2); Carbon Dioxide 24 mmol/L (22-32); Chloride 108 mmol/L (98-107); Cholesterol 116 mg/dL (140-199); Estimated Glomerular Filt Rate > 60 mL/min (>60); Glucose 122 mg/dL (70-99); HDL Cholesterol 45 mg/dL (40-60); HEMOLYSIS < 15 (0-50); LDL Cholesterol Calculated 39 mg/dL (<100); Phosphorous 3.4 mg/dL (2.3-3.7); Sodium 139 mmol/L (137-145); Triglycerides 158 mg/dL (35-150)
[2025-01-01 15:08] LABS: Creatinine Urine Random 135.79 mg/dL
[2025-01-01 15:16] LABS: Microalbumin Urine Random 0.6 mg/dL (0-1.6)
== END ==
LOC: LAB 11:43
PROVIDERS: PCP Internal Medicine; Referring Provider Student in an Organized Health Care Education/Training Program; Visit Provider Student in an Organized Health Care Education/Training Program
DX: E11.69 Type 2 diabetes mellitus with other specified complication (principal)
CPT/HCPCS: 36415; 80061; 80069; 82043; 82570

== ENCOUNTER → 2025-01-02 14:35 | Outpatient (CLI) | payer MEDICARE, SELFPAY ==
[2025-01-02 15:33] LABS: Creatinine Urine Random 100.34 mg/dL
[2025-01-02 15:38] LABS: Microalbumin Urine Random 1.3 mg/dL (0-1.6)
== END ==
LOC: LAB 14:39
PROVIDERS: PCP Internal Medicine; Referring Provider Student in an Organized Health Care Education/Training Program; Visit Provider Student in an Organized Health Care Education/Training Program
DX: E11.69 Type 2 diabetes mellitus with other specified complication (principal)
CPT/HCPCS: 82043; 82570

== ENCOUNTER → 2025-04-01 11:11 | Outpatient (CLI) | payer MEDICARE, SELFPAY ==
[2025-04-01 12:29] LABS: Prostate Specific Antigen 0.455 ng/mL (0.10-4.00)
== END ==
PROVIDERS: PCP Internal Medicine; Referring Provider Radiology Radiation Oncology; Visit Provider Radiology Radiation Oncology
DX: C61 Malignant neoplasm of prostate (principal)
CPT/HCPCS: 36415; 84153

== ENCOUNTER → 2025-07-03 11:19 | Outpatient (CLI) | payer MEDICARE, SELFPAY ==
[2025-07-03 12:23] LABS: Hematocrit 45.9 % (41-53); Hemoglobin 15.1 g/dL (13.5-17.5); Mean Corpuscular HGB Conc 32.8 % (30-36); Mean Corpuscular Hemoglobin 29.6 PG (26-34); Mean Corpuscular Volume 90.0 fL (80-100); Platelet Count 69 X10^3/uL (150-400)
[2025-07-03 12:32] LABS: Alanine Aminotransferase 20 IU/L (<50); Albumin 4.0 g/dL (3.5-5.0); Albumin Globulin Ratio 1.6 (1.0-2.8); Alkaline Phosphatase 76 U/L (38-126); Blood Urea Nitrogen 15 mg/dL (9-20); Calcium 9.0 mg/dL (8.4-10.2); Carbon Dioxide 27 mmol/L (22-32); Chloride 105 mmol/L (98-107); Cholesterol 106 mg/dL (140-199); Estimated Glomerular Filt Rate > 60 mL/min (>60); Globulin 2.5 g/dL (1.7-4.1); Glucose 118 mg/dL (70-99); HDL Cholesterol 46 mg/dL (40-60); HEMOLYSIS < 15 (0-50); Potassium 4.8 mmol/L (3.4-5.1); Sodium 140 mmol/L (137-145); Total Protein 6.5 g/dL (6.3-8.2); Triglycerides 94 mg/dL (35-150)
[2025-07-03 12:33] LABS: Hemoglobin A1C% w Est Avg Glu 5.5 % (4.0-6.0)
[2025-07-03 13:04] LABS: TSH w/ Reflex to FT4 2.30 uIU/mL (0.47-4.68)
[2025-07-03 13:22] LABS: Vitamin B12 Reflex MMA if <400 361 pg/mL (239-931)
== END ==
PROVIDERS: PCP Internal Medicine; Referring Provider Internal Medicine; Visit Provider Internal Medicine
DX: E11.69 Type 2 diabetes mellitus with other specified complication (principal); E78.5 Hyperlipidemia, unspecified; E53.8 Deficiency of other specified B group vitamins; E78.2 Mixed hyperlipidemia
CPT/HCPCS: 36415; 80053; 80061; 82607; 83036; 83921; 84443; 85027